=== PATIENT | male | born 1950 | race African-American/Black ===

== ENCOUNTER → 2023-11-12 11:24 | Outpatient (REF) | payer MEDICARE, OTHER, SELFPAY ==
[2023-11-12 13:27] LABS: PSA, Total - Diagnostic 5.66 ng/ml (0.0-4.0)
== END ==
LOC: REG 11:24
PROVIDERS: ATTENDING PHYSICIAN Specialist
DX: R97.20 Elevated prostate specific antigen [PSA] (principal)
CPT/HCPCS: 36415; 84153

== ENCOUNTER → 2023-11-23 18:06 | Outpatient (REF) | payer MEDICARE, OTHER, SELFPAY | LOC: MRI 3T 18:06 | PROVIDERS: ATTENDING PHYSICIAN Specialist | DX: R97.20 Elevated prostate specific antigen [PSA] (principal) | CPT/HCPCS: 72197; A9575 ==

== ENCOUNTER → 2024-01-15 15:24 | Outpatient (REF) | payer MEDICARE, SELFPAY | LOC: CLAB 15:24 | PROVIDERS: ATTENDING PHYSICIAN Specialist | DX: R97.20 Elevated prostate specific antigen [PSA] (principal) | CPT/HCPCS: 88305; 88344 ==